=== PATIENT | male | born 1980 | race American Indian/Alaskan Native ===

== ENCOUNTER 2019-06-24 16:54 | Emergency (ER) | payer OTHER ==
[2019-06-24 17:01] VITALS: BP 158/81
[2019-06-24] MEDS: ACETAMINOPHEN 500 MG TAB PO ONE (17:34)
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
== END 2019-06-24 19:17 | disposition home or self-care (01) ==
LOC: ED 16:54
DX: S00.93XA Contusion of unspecified part of head, initial encounter (principal); Z79.899 Other long term (current) drug therapy; Z88.8 Allergy status to other drugs, medicaments and biological substances; V49.49XA Driver injured in collision with other motor vehicles in traffic accident, initial encounter; Y93.89 Activity, other specified; Y92.488 Other paved roadways as the place of occurrence of the external cause; Y99.8 Other external cause status
CPT/HCPCS: 70450